=== PATIENT | female | born 1995 | race Caucasian/White ===

== ENCOUNTER 2024-05-03 23:28 | Inpatient (IN) | payer MEDICAID ==
--- NOTE | 2024-05-04 | ED ---
Psych HPI - General Chief Complaint: Psychiatric Symptoms Stated Complaint: SI Time Seen by Provider: 05/03/24 23:50 Source: patient, RN notes reviewed, old records reviewed Mode of arrival: ambulatory - History of Present Illness Initial Comments: This is a 29-year-old female with longstanding depression issues and suicidal thoughts. Patient states he is thoughts of ramped up over the past few days to weeks. No recent life stressors or change, no change in medications, patient is drinking occasionally. But symptoms are uncontrolled at this time, patient is tearful during questioning and history of present illness MD Complaint: suicidal ideation, feels depressed -: week(s) Associated Psychiatric Symptoms: depression, suicidal ideation History of same: Yes Quality: constant, getting worse Improves With: none Worsens With: none Context: recent alcohol abuse Associated Symptoms: denies other symptoms Treatments Prior to Arrival: placed on mental health hold If Self Harm: admits thoughts of self harm - Related Data Home Medications Medication Instructions Recorded Confirmed [place]/APAP/Caf/Cod [id number] 1 each PO Q6H 06/26/13 06/26/13 [Fioricet W/Codeine] Hydrocodone/Acetaminophen [Vicodin 1 tab PRN 06/26/13 06/26/13 Hp 10-300 mg Tablet] Allergies Allergy/AdvReac Type Severity Reaction Status Date / Time No Known Allergies Allergy Verified 05/03/24 23:38 Review of Systems ROS Statement: Those systems with pertinent positive or pertinent negative responses have been documented in the HPI. ROS Other: All systems not noted in ROS Statement are negative. Past Medical History Past Medical History: No Reported History History of Any Multi-Drug Resistant Organisms: None Reported Past Surgical History: No Surgical Hx Reported Past Psychological History: Anxiety, Depression Smoking Status: Vaper Past Alcohol Use History: Occasional Past Drug Use History: Marijuana General Exam Limitations: no limitations General appearance: alert, in no apparent distress Head exam: Present: atraumatic, normocephalic, normal inspection Eye exam: Present: normal appearance, PERRL, EOMI. Absent: scleral icterus, conjunctival injection, periorbital swelling ENT exam: Present: normal exam, mucous membranes moist Neck exam: Present: normal inspection. Absent: tenderness, meningismus, lymphadenopathy Respiratory exam: Present: normal lung sounds bilaterally. Absent: respiratory distress, wheezes, rales, rhonchi, stridor Cardiovascular Exam: Present: regular rate, normal rhythm, normal heart sounds. Absent: systolic murmur, diastolic murmur, rubs, gallop, clicks GI/Abdominal exam: Present: soft, normal bowel sounds. Absent: distended, tenderness, guarding, rebound, rigid Extremities exam: Present: normal inspection, full ROM, normal capillary refill. Absent: tenderness, pedal edema, joint swelling, calf tenderness Back exam: Present: normal inspection Neurological exam: Present: alert, oriented X3, CN II-XII intact Psychiatric exam: Present: normal affect, normal mood Skin exam: Present: warm, dry, intact, normal color. Absent: rash Course Vital Signs 05/03/24 23:39 Temperature 98.0 F Pulse Rate 108 H Respiratory 20 Rate Blood Pressure 131/88 O2 Sat by Pulse 98 Oximetry - Reevaluation(s) Reevaluation #1: 05/04/24 00:16 Medical records reviewed Reevaluation #2: 05/04/24 00:16 Medical cleared for psychiatric evaluation Reevaluation #3: Was pt. sent in by a medical professional or institution (, PA, FOOD SERVICE CASHIER, urgent care, hospital, or senior living...) When possible be specific @ -no Did you speak to anyone other than the patient for history (EMS, parent, family, police, friend...)? What history was obtained from this source @ -no Did you review nursing and triage notes (agree or disagree)? Why? @ -agree Are old charts reviewed (outside hosp., previous admission, EMS record, old EKG, old radiological studies, urgent care reports/EKG's, senior living records)? Report findings @ -yes Differential Diagnosis (chest pain, altered mental status, abdominal pain women, abdominal pain men, vaginal bleeding, weakness, fever, dyspnea, syncope, headache, dizziness, GI bleed, back pain, seizure, CVA, palpatations, mental health, musculoskeletal)? @ -prior EKG interpreted by me (3pts min.). @ -yes X-rays interpreted by me (1pt min.). @ -yes negative for acute disease CT interpreted by me (1pt min.). @ -no U/S interpreted by me (1pt. min.). @ -no What testing was considered but not performed or refused? (CT, X-rays, U/S, labs)? Why? @ -none What meds were considered but not given or refused? Why? @ -none Did you discuss the management of the patient with other professionals (professionals i.e. , PA, FOOD SERVICE CASHIER, lab, RT, psych nurse, social work lecturer, squaring machine operator, teacher, executive vice president and chief financial officer, nurse case manager)? Give summary @ -no Was smoking cessation discussed for >3mins.? @ -no Was critical care preformed (if so, how long)? @ -no Were there social determinants of health that impacted care today? How? (Homelessness, low income, unemployed, alcoholism, drug addiction, transportation, low edu. Level, literacy, decrease access to med. care, usp, rehab)? @ -none Was there de-escalation of care discussed even if they declined (Discuss DNR or withdrawal of care, Hospice)? DNR status @ -no What co-morbidities impacted this encounter? (DM, HTN, Smoking, COPD, CAD, Cancer, CVA, ARF, Chemo, Hep., AIDS, mental health diagnosis, sleep apnea, morbid obesity)? @ -none Was patient admitted / discharged? Hospital course, mention meds given and route, prescriptions, significant lab abnormalities, going to OR and other pertinent info. @ - Undiagnosed new problem with uncertain prognosis? @ -no Drug Therapy requiring intensive monitoring for toxicity (Heparin, Nitro, Insulin, Cardizem)? @ -no Were any procedures done? @ -no Diagnosis/symptom? @ - Acute, or Chronic, or Acute on Chronic? @ -Acute Uncomplicated (without systemic symptoms) or Complicated (systemic symptoms)? @ -Complicated Side effects of treatment? @ -no Exacerbation, Progression, or Severe Exacerbation? @ -exacerbation Poses a threat to life or bodily function? How? (Chest pain, [place], [place], pneumonia, PE, COPD, DKA, ARF, appy, cholecystitis, CVA, Diverticulitis, Homicidal, Suicidal, threat to staff... and all critical care pts) @ -yes Reevaluation #4: Differential Mental Health Depression, anxiety, bipolar, psychosis, schizophrenia, borderline personality, situational depression, adjustment disorder, behavioral disorder, brain tumor, malingering, substance abuse, encephalopathy, medication reaction, dementia, hypothyroidism, degenerative neurologic disorder, lupus.... This is not meant to be all-inclusive list Disposition Clinical Impression: Depression, Suicidal ideation Disposition: TRANSFER TO PSYCH HOSP/UNIT Condition: Fair Is patient prescribed a controlled substance at d/c from ED?: No Referrals: Lila Hernandes MD [Primary Care Provider] - 1-2 days
[2024-05-04] MEDS: LORazepam 1 MG TAB PO STA (01:31)
[2024-05-04] MEDS ORDERED: HALOPERIDOL LACTATE 5 MG/ML 1 ML VIAL IM PRN (02:12)
[2024-05-04] MEDS ORDERED: ACETAMINOPHEN TAB 325 MG TAB PO PRN (02:12)
[2024-05-04] MEDS ORDERED: MAG HYDROX/AL HYDROX/SIMETH 355 ML BOTTLE PO PRN (02:12)
[2024-05-04] MEDS ORDERED: LORazepam 1 MG TAB PO PRN (02:12)
[2024-05-04] MEDS ORDERED: IBUPROFEN 600 MG TAB PO PRN (02:12)
[2024-05-04] MEDS ORDERED: MAGNESIUM HYDROXIDE 2,400 MG/30 ML CUP PO PRN (02:12)
[2024-05-04] MEDS ORDERED: haloperidoL 5 MG TAB PO PRN (02:12)
[2024-05-04] MEDS ORDERED: LORazepam 2 MG/ML INJ IM PRN (02:12)
[2024-05-04 03:42] LABS: Appearance,Urine Clear (Clear); Bilirubin,Urine Negative (Negative); Blood,Urine Negative (Negative); Color,Urine Colorless; Glucose,Urine (UA) Negative (Negative); Ketones,Urine Negative (Negative); Leukocyte Esterase,Urine Negative (Negative); Nitrite,Urine Negative (Negative); Protein,Urine Negative (Negative); Urobilinogen,Urine <2.0 mg/dL (<2.0)
[2024-05-04 03:53] LABS: Amphetamine Screen,Urine Not Detected (NotDetected); Barbiturate Screen,Urine Not Detected (NotDetected); Benzodiazepines Screen,Urine Not Detected (NotDetected); Cocaine Screen,Urine Not Detected (NotDetected); Methadone Screen, Urine Not Detected (NotDetected); Opiate Screen,Urine Not Detected (NotDetected); Oxycodone Screen, Urine Not Detected (NotDetected); Phencyclidine Screen,Urine Not Detected (NotDetected); Tricyclic Antidepressant,Urine Not Detected (NotDetected); Urn Cannabinoid Scrn Not Detected (NotDetected)
[2024-05-04] MEDS: NICOTINE 21MG/24HR PATCH TRANSDERM SCH (08:33)
[2024-05-04] MEDS: SERTRALINE 100 MG TAB PO SCH (08:34)
[2024-05-04 09:56] LABS: Basophils # (A) 0.1 k/uL (0-0.2); Basophils % (A) 1 %; Eosinophils # (A) 0.2 k/uL (0-0.7); Eosinophils % (A) 2 %; HCT 41.1 % (34.0-46.0); HGB 12.9 gm/dL (11.4-16.0); Lymphocytes # (A) 2.4 k/uL (1.0-4.8); Lymphocytes % (A) 35 %; MCH 29.1 pg (25.0-35.0); MCHC 31.4 g/dL (31.0-37.0); MCV 92.7 fL (80.0-100.0); Mean Platelet Volume 8.7; Monocytes # (A) 0.4 k/uL (0-1.0); Monocytes % (A) 6 %; Neutrophils # (A) 3.7 k/uL (1.3-7.7); Neutrophils % (A) 54 %; Platelet Count 229 k/uL (150-450); RBC 4.44 m/uL (3.80-5.40); RDW 12.3 % (11.5-15.5); WBC 6.8 k/uL (3.8-10.6)
[2024-05-04] MEDS ORDERED: ALBUTEROL NEBULIZED 2.5 MG/3 ML INHALATION PRN (11:46)
--- NOTE | 2024-05-04 12:08 | P.HP ---
Psychiatric H&P - . H&P Date: 05/04/24 History & Physical: Allergies Allergy/AdvReac Type Severity Reaction Status Date / Time No Known Allergies Allergy Verified 05/04/24 10:23 Vital Signs Temp 97.6 F 05/04/24 10:08 Pulse 75 05/04/24 10:08 Resp 16 05/04/24 10:08 BP 98/67 05/04/24 10:08 Pulse Ox 65 L 05/04/24 10:08 FiO2 Intake & Output 05/03/24 05/04/24 05/04/24 18:59 06:59 18:59 Weight 59.874 kg Laboratory Last Values WBC 6.8 k/uL (3.8-10.6) 05/04/24 08:50 RBC 4.44 m/uL (3.80-5.40) 05/04/24 08:50 Hgb 12.9 gm/dL (11.4-16.0) 05/04/24 08:50 Hct 41.1 % (34.0-46.0) 05/04/24 08:50 MCV 92.7 fL (80.0-100.0) 05/04/24 08:50 MCH 29.1 pg (25.0-35.0) 05/04/24 08:50 MCHC 31.4 g/dL (31.0-37.0) 05/04/24 08:50 RDW 12.3 % (11.5-15.5) 05/04/24 08:50 Plt Count 229 k/uL (150-450) 05/04/24 08:50 MPV 8.7 05/04/24 08:50 Neutrophils % 54 % 05/04/24 08:50 Lymphocytes % 35 % 05/04/24 08:50 Monocytes % 6 % 05/04/24 08:50 Eosinophils % 2 % 05/04/24 08:50 Basophils % 1 % 05/04/24 08:50 Neutrophils # 3.7 k/uL (1.3-7.7) 05/04/24 08:50 Lymphocytes # 2.4 k/uL (1.0-4.8) 05/04/24 08:50 Monocytes # 0.4 k/uL (0-1.0) 05/04/24 08:50 Eosinophils # 0.2 k/uL (0-0.7) 05/04/24 08:50 Basophils # 0.1 k/uL (0-0.2) 05/04/24 08:50 Urine Color Colorless 05/04/24 02:47 Urine Appearance Clear (Clear) 05/04/24 02:47 Urine pH 5.0 (5.0-8.0) 05/04/24 02:47 Ur Specific [place] 1.010 (1.001-1.035) 05/04/24 02:47 Urine Protein Negative (Negative) 05/04/24 02:47 Urine Glucose (UA) Negative (Negative) 05/04/24 02:47 Urine Ketones Negative (Negative) 05/04/24 02:47 Urine Blood Negative (Negative) 05/04/24 02:47 Urine Nitrite Negative (Negative) 05/04/24 02:47 Urine Bilirubin Negative (Negative) 05/04/24 02:47 Urine Urobilinogen <2.0 mg/dL (<2.0) 05/04/24 02:47 Ur Leukocyte Esterase Negative (Negative) 05/04/24 02:47 Urine HCG, Qual Not Detected (Not Detectd) 05/04/24 02:47 Urine Opiates Screen Not Detected (NotDetected) 05/04/24 02:47 Ur Oxycodone Screen Not Detected (NotDetected) 05/04/24 02:47 Urine Methadone Screen Not Detected (NotDetected) 05/04/24 02:47 Ur Barbiturates Screen Not Detected (NotDetected) 05/04/24 02:47 U Tricyclic Antidepress Not Detected (NotDetected) 05/04/24 02:47 Ur Phencyclidine Scrn Not Detected (NotDetected) 05/04/24 02:47 Ur Amphetamines Screen Not Detected (NotDetected) 05/04/24 02:47 U Methamphetamines Scrn Not Detected (NotDetected) 05/04/24 02:47 U Benzodiazepines Scrn Not Detected (NotDetected) 05/04/24 02:47 Urine Cocaine Screen Not Detected (NotDetected) 05/04/24 02:47 U Marijuana (THC) Screen Not Detected (NotDetected) 05/04/24 02:47 SARS-CoV-2 (PCR) Not Detected (Not Detectd) 05/04/24 01:07 05/04/24 11:38 IDENTIFYING DATA: Patient is a 29-year-old female, currently single has no kids, lives with a friend in a house, 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 Patient was evaluated by EPS, admitted voluntarily to the mental health unit. Patient's urine drug screen was negative. Patient was seen today agreeable to speak to senior technical writer in the office. She had fairly poor eye contact, fairly concrete and appeared to be depressed. States that her depression has been "too much to handle". States that "I could not do it on my own" and claims that she needed to come into the hospital. She states that her depression "comes in waves" and states that she has been dealing with this issue chronically. States that she also has severe anxiety. Denies any recent life stressors or triggers in her life. Claims that she was having suicidal thoughts to cut her wrists. States that her sleep and appetite have been poor. Denying any paranoia at this time.. Patient denies any suicidal or homicidal ideations intent or plan. At this time patient denies any auditory or visual hallucinations. Patient denies any flight of ideas racing thoughts and increased in goal directed behavior. She did claim that she has a history of episodes where she spends a lot of money, has a lot of energy does need to sleep, possible manic episodes that she reflects back on in the past few years. Patient admits to using vape nicotine products. Denies any other drug recreational drug use. PAST PSYCHIATRIC HISTORY: Patient has a history of depression, anxiety. Patient is currently on Zoloft 100 mg daily. Patient denies any previous psychiatric hospitalizations. Patient denies any psychiatric outpatient follow-up. She claims that she gets prescribed the Zoloft by her primary care doctor. Claims that she did have an episode when she was 15 years old when she attempted to cut her wrists. Past Medical History: No Reported History History of Any Multi-Drug Resistant Organisms: None Reported Past Surgical History: No Surgical Hx Reported Past Psychological History: Anxiety, Depression Smoking Status: Vaper Past Alcohol Use History: Occasional Past Drug Use History: Marijuana ALLERGIES: as per EMR CHEMICAL DEPENDENCY HISTORY: as per HPI FAMILY PSYCHIATRIC/SUBSTANCE USE HISTORY: Denies SOCIAL HISTORY: Patient was born and raised in [facility]. Claims that she completed high school and did trade school. States that she currently works doing patient registration in the hospital. States that she is single she has no kids, she lives with a friend in a house. She denies any legal history. MENTAL STATUS EXAM: General Appearance: Patient appears to be thin, wearing hospital gown, stated age is alert, directable, and attempts to cooperate. Patient appears to have poor hygiene and grooming. Poor eye contact Behavior: Patient is seated without any agitated behavior. Attempts to cooperate Speech: Patient's speech is fluent and nonpressured. Fairly concrete monotone Mood/Affect: Patient reports their mood is depressed and anxious, affect is congruent and constricted. Suicidality/Homicidality: Patient denies having any homicidal ideation intent or plan. Denies any current suicidal ideations intent or plan Perceptions: Patient denies any visual hallucinations and denies any auditory hallucinations Though content/process: There is no evidence of any delusional thought content and thought process is linear and goal-directed. Focused on her depression and suicidal ideations in the past. Memory and concentration: AOX3, grossly intact for the purposes of this session. Can spell "WORLD" backwards Judgment and insight: fair STRENGTHS/WEAKNESSES: strength is that patient is resilient. Weakness is that patient has chronic symptoms and is impulsive INTELLECT: Average IMPRESSIONS: Suicidal ideations Depressive disorder unspecified, rule out bipolar depression versus major depressive disorder Generalized anxiety disorder Nicotine dependence PLAN: -Patient is admitted under voluntary status to MHU for stabilization of psychiatric symptoms and safety. Patient has signed adult voluntary form and has signed medication consent and is placed in patient's chart. -Medications : Continue with Zoloft 100 mg daily for mood/anxiety, added Abilify 2.5 mg daily for mood stabilization, trazodone 25 mg nightly for mood/insomnia -Ativan and Haldol PRN for agitation/aggression -Patient was informed of the risks, benefits and side effects of the medications and patient verbally consented to taking the medications. Patient signed med consent form and was placed in chart. Patient was offered medication information and declined it -Internal Medicine consult to perform medical evaluation and physical. -NRT -nicotine patch -SW on board for discharge planning. Encourage patient to participate in groups to work on coping skills. 05/04/24 12:02
[2024-05-04 12:25] LABS: ALT 17 U/L (4-34); AST 21 U/L (14-36); African American GFR (CKD) >90 (>60 ml/min/1.73 sqM); Albumin 4.4 g/dL (3.5-5.0); Alkaline Phosphatase 49 U/L (38-126); Anion Gap 11 mmol/L; Bilirubin, Delta 0.3 mg/dL (0.0-0.2); Bilirubin,Unconjugated 0.5 mg/dL (0.0-1.1); Blood Urea Nitrogen 20 mg/dL (7-17); Calcium 8.9 mg/dL (8.4-10.2); Carbon Dioxide 24 mmol/L (22-30); Chloride 104 mmol/L (98-107); Glucose 94 mg/dL (74-99); Non-African American GFR(CKD) >90 (>60 ml/min/1.73 sqM); Sodium 139 mmol/L (137-145); Total Bilirubin 0.8 mg/dL (0.2-1.3); Total Protein 7.1 g/dL (6.3-8.2)
[2024-05-04] MEDS: FLUTICASONE NASAL 50MCG/SPRAY 16GM BTL EA NOSTRIL SCH (12:31)
[2024-05-04] MEDS: NORETHINDRONE AC ETH ESTRADIOL PO SCH (12:33)
[2024-05-04] MEDS: MELOXICAM 7.5 MG TAB PO SCH (12:34)
[2024-05-04] MEDS: ARIPiprazole 5 MG TAB PO SCH (12:35)
[2024-05-04 15:33] LABS: Chol/HDL Ratio 2.87 Ratio; LDL Cholesterol,Calculated 115.8 mg/dL (0.0-131.0)
[2024-05-04] MEDS: traZODone HCL 50 MG TAB PO SCH (20:34)
--- NOTE | 2024-05-05 04:37 | P.CONS ---
History of Present Illness - Reason for Consult Consult date: 05/05/24 - History of Present Illness The patient is a 29-year-old female with a PMH of chronic migraine, mild intermittent asthma, and depression who presents to the emergency with complaints of depression and suicidal ideation. Patient was admitted to mental health unit where she was seen and evaluated. The patient reports that there is any specific life factors that are triggering her current episode but that she simply does not feel well. She does report chronic migraines which are well controlled with her prophylactic injections. She also reports chronic bilateral hand tremors which she has been following with neurology. She denies illicit substance, alcohol, or tobacco use. Denied any physical complaints at time of interview. Denied experiencing chest discomfort, shortness breath, fever, chills, cough, nausea, vomiting, abdominal pain, diarrhea. Review of systems: Pertinent positives and negatives as discussed in HPI, a complete review of systems was performed and all other systems are negative. Physical examination: General: non toxic, no distress, appears at stated age, normal weight Derm: no unusual rashes/lesions, no unusual ecchymoses, warm, dry Head: atraumatic, normocephalic, symmetric Eyes: EOMI, no lid lag, anicteric sclera ENT: Nose and ears atraumatic, no thrush, no pharyngeal erythema Neck: trachea midline, supple Mouth: no lip lesion, mucus membranes moist Cardiovascular: S1S2 reg, no murmur, no edema Lungs: CTA bilateral, no rhonchi, no rales , no accessory muscle use Abdominal: soft, nontender to palpation, no guarding Ext: no gross muscle atrophy, no contractures, Neuro: No gross focal neuro deficits noted Psych: Alert, oriented, appropriate affect Assessment: Chronic migraines Mild intermittent asthma Depression and suicidal ideation Imaging: None performed Data Review: Laboratory evaluation reviewed with WBC count 6.8, hemoglobin 12.9, platelet count 229, sodium 139, potassium 4.0, BUN 20, creatinine 0.74, UA unremarkable, urine toxicology negative Plan: Continue with albuterol inhaler as needed and home prophylactic and treatment doses for migraines Defer management of depression and suicidal ideation to the primary psychiatry service Thank you for allowing us to participate in the care of this patient. We will follow peripherally. Do not hesitate to contact us with questions. Someone can be reached from the [facility] hospitalist group at all hours of the day at [phone]. Past Medical History Past Medical History: No Reported History History of Any Multi-Drug Resistant Organisms: None Reported Past Surgical History: No Surgical Hx Reported Past Psychological History: Anxiety, Depression Smoking Status: Vaper Past Alcohol Use History: Occasional Past Drug Use History: None Reported Medications and Allergies Home Medications Medication Instructions Recorded Confirmed Type Albuterol Inhaler [Ventolin Hfa 2 puff INHALATION RT-Q4H PRN 05/04/24 05/04/24 History Inhaler] Cetirizine HCl [Zyrtec] 10 mg PO DAILY 05/04/24 05/04/24 History Fluticasone Nasal [place] [Flonase 1 spray EA NOSTRIL DAILY 05/04/24 05/04/24 History Nasal [place]] Galcanezumab-Gnlm [Emgality Pen] 120 mg SQ Q30D 05/04/24 05/04/24 History Meloxicam [Mobic] 7.5 mg PO DAILY 05/04/24 05/04/24 History SUMAtriptan succinate [Imitrex] 50 mg PO BID PRN 05/04/24 05/04/24 History Sertraline [Zoloft] 100 mg PO DAILY 05/04/24 05/04/24 History norethindrone ac-eth estradioL 1 tab PO DAILY 05/04/24 05/04/24 History [Loestrin 21 1-20 Tablet] Allergies Allergy/AdvReac Type Severity Reaction Status Date / Time No Known Allergies Allergy Verified 05/04/24 10:23 Physical Exam Vitals: Vital Signs Temp Pulse Resp BP Pulse Ox 05/04/24 21:55 97.9 F 83 16 105/72 98 05/04/24 10:08 97.6 F 75 16 98/67 65 L 05/04/24 04:59 98.2 F 97 18 117/78 97 Results CBC & Chem 7: 05/04/24 08:50 05/04/24 08:50 Labs: Abnormal Lab Results - Last 24 Hours (Table) 05/04/24 Range/Units 08:50 BUN 20 H (7-17) mg/dL Delta Bilirubin 0.3 H (0.0-0.2) mg/dL Cholesterol 212.00 H (0.00-200.00) mg/dL HDL Cholesterol 73.80 H (40.00-60.00) mg/dL
[2024-05-05] MEDS ORDERED: MELATONIN 3 MG TABLET PO PRN (11:32)
--- NOTE | 2024-05-05 11:32 | P.PN ---
Progress Note - Text Progress Note Date: 05/05/24 Interval history: Patient was seen today for psychiatric follow-up. Patient was laying in her b ed, agreeable to speak to science writer. She claims that she is feeling a bit tired this morning, claims that she was awoken several times last night for different reasons. States that she feels after taking the Abilify she is a bit tired. Was agreeable to try the Abilify dose at nighttime. Does state that she is improving mildly with regards to her mood and also anxiety. Denying any manic symptoms at this time. Claims that her suicidal thoughts are improving since yesterday, denies any homicidal ideations denies any auditory or visual hallucinations. Has been mainly keeping herself in her room. Has been eating fairly. Not reporting any side effects at this time. MENTAL STATUS EXAM: General Appearance: Patient appears to be thin, wearing hospital gown, stated age is alert, directable, and attempts to cooperate. Patient appears to have mildly improving hygiene and grooming. Improving eye contact Behavior: Patient is seated without any agitated behavior. Attempts to cooperate Speech: Patient's speech is fluent and nonpressured. Fairly concrete monotone my improving mildly Mood/Affect: Patient reports their mood is depressed and anxious, improving mildly, affect is congruent and constricted. Suicidality/Homicidality: Patient denies having any homicidal ideation intent or plan. Denies any current suicidal ideations intent or plan Perceptions: Patient denies any visual hallucinations and denies any auditory hallucinations Though content/process: There is no evidence of any delusional thought content and thought process is linear and goal-directed. Focused on her depression and suicidal ideations in the past. Memory and concentration: AOX3, grossly intact for the purposes of this session Judgment and insight: fair IMPRESSIONS: Suicidal ideations Depressive disorder unspecified, rule out bipolar depression versus major depressive disorder Generalized anxiety disorder Nicotine dependence PLAN: -Patient is admitted under voluntary status to MHU for stabilization of psychiatric symptoms and safety. Patient has signed adult voluntary form and has signed medication consent and is placed in patient's chart. -Medications : Zoloft 100 mg daily for mood/anxiety, change Abilify 2.5 mg qhs for mood stabilization, trazodone 25 mg nightly for mood/insomnia. added melatonin prn for sleep. -Ativan and Haldol PRN for agitation/aggression -NRT -nicotine patch -SW on board for discharge planning. Encourage patient to participate in groups to work on coping skills. likely discharge saturday vs saturday if patient is improving psychiatrically.
[2024-05-05] MEDS: ARIPiprazole 5 MG TAB PO SCH (20:45)
--- NOTE | 2024-05-06 12:04 | P.PN ---
Progress Note - Text Progress Note Date: 05/06/24 Interval history: Patient was seen today for psychiatric follow-up. Patient was doing a puzzle, interacting with others. Claims that she likes the switch of the Abilify to nighttime, claims that she was able to sleep about 6 hours last night. States that she has been trying to interact more with others on the unit, believes that her medications have been helping. Claims that she is not feeling tired during the day today. States that her mood and anxiety are mildly improving, no irritability. We spoke a bit about discharge planning likely on Saturday. Her appetite is fair has been showering. denies any homicidal ideations denies any suicidal ideations, denies any auditory or visual hallucinations. Not reporting any side effects at this time. MENTAL STATUS EXAM: General Appearance: Patient appears to be thin, wearing hospital gown, stated age is alert, directable, and attempts to cooperate. Patient appears to have mildly improving hygiene and grooming. Improving eye contact Behavior: Patient is seated without any agitated behavior. Attempts to cooperate Speech: Patient's speech is fluent and nonpressured. Fairly concrete monotone my improving mildly Mood/Affect: Patient reports their mood is depressed and anxious, improving mildly, affect is congruent and constricted. Improving mildly Suicidality/Homicidality: Patient denies having any homicidal ideation intent or plan. Denies any current suicidal ideations intent or plan Perceptions: Patient denies any visual hallucinations and denies any auditory hallucinations Though content/process: There is no evidence of any delusional thought content and thought process is linear and goal-directed. Less focused on depression and her symptoms Memory and concentration: AOX3, grossly intact for the purposes of this session Judgment and insight: fair IMPRESSIONS: Suicidal ideations Depressive disorder unspecified, rule out bipolar depression versus major depressive disorder Generalized anxiety disorder Nicotine dependence PLAN: -Patient is admitted under voluntary status to MHU for stabilization of psychiatric symptoms and safety. Patient has signed adult voluntary form and has signed medication consent and is placed in patient's chart. -Medications : Zoloft 100 mg daily for mood/anxiety, increase Abilify 5 mg qhs for mood stabilization, trazodone 25 mg nightly for mood/insomnia. melatonin prn for sleep. -Ativan and Haldol PRN for agitation/aggression -NRT -nicotine patch -SW on board for discharge planning. Encourage patient to participate in groups to work on coping skills. likely discharge saturday if patient is improving psychiatrically.
[2024-05-06] MEDS: ARIPiprazole 5 MG TAB PO SCH (20:36)
[2024-05-07] MEDS: SUMAtriptan succinate 50 MG TAB PO PRN (08:59)
--- NOTE | 2024-05-07 12:55 | P.PN ---
Progress Note - Text Progress Note Date: 05/07/24 Interval history: Patient was seen today for psychiatric follow-up. Patient claims that she is doing a bit better today, claims that she slept very well last night with the increased dose and Abilify. Claims that she wants to remain on the same dose of medications. Claims that her mood is a lot more stable now, denies any depression claims that her anxiety is improving as well. She appears to be a bit more future oriented today we spoke about potential discharge tomorrow which she is okay with. Claims that she is try to go to groups interacting with others. Her appetite is fair has been showering. denies any homicidal ideations denies any suicidal ideations, denies any auditory or visual hallucinations. Not reporting any side effects at this time. MENTAL STATUS EXAM: General Appearance: Patient appears to be thin, wearing hospital gown, stated age is alert, directable, and attempts to cooperate. Patient appears to have mildly improving hygiene and grooming. Improving eye contact Behavior: Patient is seated without any agitated behavior. Cooperative Speech: Patient's speech is fluent and nonpressured. improving mildly Mood/Affect: Patient reports their mood is improving mildly, affect is congruent and Improving mildly Suicidality/Homicidality: Patient denies having any homicidal ideation intent or plan. Denies any current suicidal ideations intent or plan Perceptions: Patient denies any visual hallucinations and denies any auditory hallucinations Though content/process: There is no evidence of any delusional thought content and thought process is linear and goal-directed. Or future oriented today Memory and concentration: AOX3, grossly intact for the purposes of this session Judgment and insight: fair IMPRESSIONS: Suicidal ideations Depressive disorder unspecified, rule out bipolar depression versus major depressive disorder Generalized anxiety disorder Nicotine dependence PLAN: -Patient is admitted under voluntary status to MHU for stabilization of psychiatric symptoms and safety. Patient has signed adult voluntary form and has signed medication consent and is placed in patient's chart. -Medications : Zoloft 100 mg daily for mood/anxiety, Abilify 5 mg qhs for mood stabilization, trazodone 25 mg nightly for mood/insomnia. melatonin prn for sleep. -Ativan and Haldol PRN for agitation/aggression -NRT -nicotine patch -SW on board for discharge planning. Encourage patient to participate in groups to work on coping skills. likely discharge saturday if patient is improving psychiatrically.
[2024-05-07 21:43] VITALS: RESP 12
[2024-05-08 09:36] VITALS: BP 113/82; PULSE 89; TEMP 97.6
--- NOTE | 2024-05-08 11:19 | P.DS ---
Providers Date of admission: 05/04/24 02:09 Expected date of discharge: 05/08/24 Attending physician: Lester Barone MD Consults: 05/04/24 02:12 Consult Physician Routine Consulting Provider: Ammon Hinds Consult Reason/Comments: H & P w/medical management Do you want consulting provider notified?: Yes Primary care physician: Lila Hernandes - Discharge Diagnosis(es) (1) Suicidal ideations Current Visit: Yes Status: Acute Priority: High (2) Bipolar disorder current episode depressed Current Visit: Yes Status: Acute Priority: High (3) Generalized anxiety disorder Current Visit: Yes Status: Acute Priority: High (4) Nicotine dependence Current Visit: Yes Status: Acute Priority: Low Hospital Course: Admission HPI: Admission note was completed by gag writer "Patient is a 29-year-old female, currently single has no kids, lives with a friend in a house, 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 patient presented to the hospital late yesterday to the ER complaining of depression and suicidal ideations for the past few weeks, was tearful. Patient was evaluated by EPS, admitted voluntarily to the mental health unit. Patient's urine drug screen was negative. Patient was seen today agreeable to speak to gag writer in the office. She had fairly poor eye contact, fairly concrete and appeared to be depressed. States that her depression has been "too much to handle". States that "I could not do it on my own" and claims that she needed to come into the hospital. She states that her depression "comes in waves" and states that she has been dealing with this issue chronically. States that she also has severe anxiety. Denies any recent life stressors or triggers in her life. Claims that she was having suicidal thoughts to cut her wrists. States that her sleep and appetite have been poor. Denying any paranoia at this time.. Patient denies any suicidal or homicidal ideations intent or plan. At this time patient denies any auditory or visual hallucinations. Patient denies any flight of ideas racing thoughts and increased in goal directed behavior. She did claim that she has a history of episodes where she spends a lot of money, has a lot of energy does need to sleep, possible manic episodes that she reflects back on in the past few years. Patient admits to using vape nicotine products. Denies any other drug recreational drug use." Hospital course: Upon admission to the unit patient was directable and agreeable to commence treatment and signed adult voluntary form. Patient was initially depressed, isolative however with time and treatment patient got along well with other patients on the unit and followed unit protocol. Patient was compliant with the medications and denied any side effects throughout hospital course. Patient was started on Zoloft 100 mg daily for mood/anxiety, Abilify 5 mg nightly for mood stabilization, trazodone 25 mg nightly for mood/insomnia.. Patient spoke of her stressors and engaged in therapy both group/activity therapy. Patient was also seen by medical team for history and physical exam. Throughout the course of the hospitalization patient gradually improved with regards to mood, anxiety, sleep and became more future oriented with improved insight and judgment. On the day of discharge patient denied any suicidal or homicidal ideations intent or plan denied any auditory or visual hallucinations. Patient endorsed wanting to live for their health and family. The patient denied any access to guns or weapons. Patient denied any paranoia and did not endorse any delusions. Patient does not have a significant history of substance abuse and was counseled on abstaining from all substances including alcohol and marijuana. Patient was also counseled on the medications and need for regular compliance and was encouraged to follow-up with their outpatient appointment for mental health and also for primary care. Prior to discharge a family meeting will be arranged by clinical social worker to answer any questions and ensure safety upon discharge incuding making sure that guns/weapons are either removed from the home or locked away. Mental status exam: General Appearance: Patient appears to be stated age is alert, pleasant, and cooperative. Patient is in no acute distress and has improved hygiene and grooming Behavior: Patient is calmly seated without any agitated behavior. Speech: Patient's speech is fluent and nonpressured. Mood/Affect: Patient reports their mood is "good", affect is congruent and euthymic. Suicidality/Homicidality: Patient denies having any suicidal or homicidal ideation intent or plan. Perceptions: Patient denies any auditory or visual hallucinations. Though content/process: There is no evidence of any delusional thought content and thought process is linear and goal-directed. More future oriented Memory and concentration: AOX3, grossly intact for the purposes of this session. Can spell "WORLD" backwards correctly. Judgment and insight: improved with guarded prognosis Impression: Suicidal ideations Bipolar disorder current episode depressed Generalized anxiety disorder and Nicotine dependence Plan: -Continue with discharge today as patient has improved and stabilized psychiatrically and is not currently an imminent threat to themself and/or others. -Continue medications: Zoloft 100 mg daily for mood/anxiety, Abilify 5 mg nightly for mood stabilization, trazodone 25 mg nightly for mood/insomnia. -Patient was counseled on the need for medication compliance and appropriate follow-up at mental health and also primary care for medical issues. Patient verbalized understanding and agreed. -Social work to help coordinate patients discharge today. also to ensure safe home environment that guns/weapons are either removed from the home or locked away. Social work also to arrange for patients follow up appointments for psychiatric care along with follow up with primary care provider. -Patient counseled on abstaining from recreational drugs and marijuana and alcohol. Was informed/educated on the adverse effects on their physical and mental health. Patient verbally agreed and understood. -Patient was instructed to return to the hospital or seek immediate medical care if their psychiatric or medical symptoms do worsen or reoccur. Allergies Allergy/AdvReac Type Severity Reaction Status Date / Time No Known Allergies Allergy Verified 05/04/24 10:23 Laboratory Results WBC 6.8 k/uL (3.8-10.6) 05/04/24 08:50 RBC 4.44 m/uL (3.80-5.40) 05/04/24 08:50 Hgb 12.9 gm/dL (11.4-16.0) 05/04/24 08:50 Hct 41.1 % (34.0-46.0) 05/04/24 08:50 MCV 92.7 fL (80.0-100.0) 05/04/24 08:50 MCH 29.1 pg (25.0-35.0) 05/04/24 08:50 MCHC 31.4 g/dL (31.0-37.0) 05/04/24 08:50 RDW 12.3 % (11.5-15.5) 05/04/24 08:50 Plt Count 229 k/uL (150-450) 05/04/24 08:50 MPV 8.7 05/04/24 08:50 Neutrophils % 54 % 05/04/24 08:50 Lymphocytes % 35 % 05/04/24 08:50 Monocytes % 6 % 05/04/24 08:50 Eosinophils % 2 % 05/04/24 08:50 Basophils % 1 % 05/04/24 08:50 Neutrophils # 3.7 k/uL (1.3-7.7) 05/04/24 08:50 Lymphocytes # 2.4 k/uL (1.0-4.8) 05/04/24 08:50 Monocytes # 0.4 k/uL (0-1.0) 05/04/24 08:50 Eosinophils # 0.2 k/uL (0-0.7) 05/04/24 08:50 Basophils # 0.1 k/uL (0-0.2) 05/04/24 08:50 Sodium 139 mmol/L (137-145) 05/04/24 08:50 Potassium 4.0 mmol/L (3.5-5.1) 05/04/24 08:50 Chloride 104 mmol/L (98-107) 05/04/24 08:50 Carbon Dioxide 24 mmol/L (22-30) 05/04/24 08:50 Anion Gap 11 mmol/L 05/04/24 08:50 BUN 20 mg/dL (7-17) H 05/04/24 08:50 Creatinine 0.74 mg/dL (0.52-1.04) 05/04/24 08:50 Est GFR (CKD-EPI)AfAm >90 (>60 ml/min/1.73 sqM) 05/04/24 08:50 Est GFR (CKD-EPI)NonAf >90 (>60 ml/min/1.73 sqM) 05/04/24 08:50 Glucose 94 mg/dL (74-99) 05/04/24 08:[address] Glu mg/dL 97 mg/dL 05/04/24 08:50 Hemoglobin A1c 5.0 % (<=6.0) 05/04/24 08:50 Calcium 8.9 mg/dL (8.4-10.2) 05/04/24 08:50 Total Bilirubin 0.8 mg/dL (0.2-1.3) 05/04/24 08:50 Conjugated Bilirubin 0.0 mg/dL (0.0-0.3) 05/04/24 08:50 Unconjugated Bilirubin 0.5 mg/dL (0.0-1.1) 05/04/24 08:50 Delta Bilirubin 0.3 mg/dL (0.0-0.2) H 05/04/24 08:50 AST 21 U/L (14-36) 05/04/24 08:50 ALT 17 U/L (4-34) 05/04/24 08:50 Alkaline Phosphatase 49 U/L (38-126) 05/04/24 08:50 Total Protein 7.1 g/dL (6.3-8.2) 05/04/24 08:50 Albumin 4.4 g/dL (3.5-5.0) 05/04/24 08:50 Triglycerides 112.00 mg/dL (0.00-149.00) 05/04/24 08:50 Cholesterol 212.00 mg/dL (0.00-200.00) H 05/04/24 08:50 LDL Cholesterol, Calc 115.8 mg/dL (0.0-131.0) 05/04/24 08:50 VLDL Cholesterol, Calc 22.40 mg/dL (5.00-40.00) 05/04/24 08:50 HDL Cholesterol 73.80 mg/dL (40.00-60.00) H 05/04/24 08:50 Cholesterol/HDL Ratio 2.87 Ratio 05/04/24 08:50 TSH 2.290 mIU/L (0.465-4.680) 05/04/24 08:50 Urine Color Colorless 05/04/24 02:47 Urine Appearance Clear (Clear) 05/04/24 02:47 Urine pH 5.0 (5.0-8.0) 05/04/24 02:47 Ur Specific Otho 1.010 (1.001-1.035) 05/04/24 02:47 Urine Protein Negative (Negative) 05/04/24 02:47 Urine Glucose (UA) Negative (Negative) 05/04/24 02:47 Urine Ketones Negative (Negative) 05/04/24 02:47 Urine Blood Negative (Negative) 05/04/24 02:47 Urine Nitrite Negative (Negative) 05/04/24 02:47 Urine Bilirubin Negative (Negative) 05/04/24 02:47 Urine Urobilinogen <2.0 mg/dL (<2.0) 05/04/24 02:47 Ur Leukocyte Esterase Negative (Negative) 05/04/24 02:47 Urine HCG, Qual Not Detected (Not Detectd) 05/04/24 02:47 Urine Opiates Screen Not Detected (NotDetected) 05/04/24 02:47 Ur Oxycodone Screen Not Detected (NotDetected) 05/04/24 02:47 Urine Methadone Screen Not Detected (NotDetected) 05/04/24 02:47 Ur Barbiturates Screen Not Detected (NotDetected) 05/04/24 02:47 U Tricyclic Antidepress Not Detected (NotDetected) 03 02:47 Ur Phencyclidine Scrn Not Detected (NotDetected) 05/04/24 02:47 Ur Amphetamines Screen Not Detected (NotDetected) 05/04/24 02:47 U Methamphetamines Scrn Not Detected (NotDetected) 05/04/24 02:47 U Benzodiazepines Scrn Not Detected (NotDetected) 05/04/24 02:47 Urine Cocaine Screen Not Detected (NotDetected) 05/04/24 02:47 U Marijuana (THC) Screen Not Detected (NotDetected) 05/04/24 02:47 SARS-CoV-2 (PCR) Not Detected (Not Detectd) 05/04/24 01:07 Vital Signs Temp 97.6 F 05/08/24 09:35 Pulse 89 05/08/24 09:35 Resp 12 05/07/24 20:48 BP 113/82 05/08/24 09:35 Pulse Ox 100 05/08/24 09:35 FiO2 Patient Condition at Discharge: Stable Plan - Discharge Summary Discharge Rx Participant: No New Discharge Prescriptions: New ARIPiprazole [Abilify] 5 mg PO HS 30 Days #30 tab traZODone HCL [Desyrel] 25 mg PO HS PRN 30 Days #30 tab PRN Reason: Insomnia Nicotine 21Mg/24Hr Patch [Habitrol] 1 patch TRANSDERM DAILY 14 Days #14 patch Melatonin 6 mg PO HS PRN tab PRN Reason: Insomnia hydrOXYzine pamoate [Vistaril] 25 mg PO DAILY PRN 30 Days #30 capsule PRN Reason: Anxiety Sertraline [Zoloft] 100 mg PO DAILY 30 Days #30 tab Continue Galcanezumab-Gnlm [Emgality Pen] 120 mg SQ Q30D Meloxicam [Mobic] 7.5 mg PO DAILY norethindrone ac-eth estradioL [Loestrin 21 1-20 Tablet] 1 tab PO DAILY Fluticasone Nasal [place] [Flonase Nasal [place]] 1 spray EA NOSTRIL DAILY SUMAtriptan succinate [Imitrex] 50 mg PO BID PRN PRN Reason: Migraine Headache Albuterol Inhaler [Ventolin Hfa Inhaler] 2 puff INHALATION RT-Q4H PRN PRN Reason: Shortness Of Breath Discontinued Sertraline [Zoloft] 100 mg PO DAILY Cetirizine HCl [Zyrtec] 10 mg PO DAILY Discharge Medication List Albuterol Inhaler [Ventolin Hfa Inhaler] 2 puff INHALATION RT-Q4H PRN 05/04/24 [History] Fluticasone Nasal [place] [Flonase Nasal [place]] 1 spray EA NOSTRIL DAILY 05/04/24 [History] Galcanezumab-Gnlm [Emgality Pen] 120 mg SQ Q30D 05/04/24 [History] Meloxicam [Mobic] 7.5 mg PO DAILY 05/04/24 [History] SUMAtriptan succinate [Imitrex] 50 mg PO BID PRN 05/04/24 [History] norethindrone ac-eth estradioL [Loestrin 21 1-20 Tablet] 1 tab PO DAILY 05/04/24 [History] ARIPiprazole [Abilify] 5 mg PO HS 30 Days #30 tab 05/08/24 [Rx] Melatonin 6 mg PO HS PRN tab 05/08/24 [Rx] Nicotine 21Mg/24Hr Patch [Habitrol] 1 patch TRANSDERM DAILY 14 Days #14 patch 05/08/24 [Rx] Sertraline [Zoloft] 100 mg PO DAILY 30 Days #30 tab 05/08/24 [Rx] hydrOXYzine pamoate [Vistaril] 25 mg PO DAILY PRN 30 Days #30 capsule 05/08/24 [Rx] traZODone HCL [Desyrel] 25 mg PO HS PRN 30 Days #30 tab 05/08/24 [Rx] Follow up Appointment(s)/Referral(s): [facility] Sousa [Outside] - 05/12/24 2:00 pm (05/12 @ 14:00 with Viktor Fernández Please check email for virtual instructions for email) Lila Hernandes MD [Primary Care Provider] - 1-2 days Patient Instructions/Handouts: How to Stop Smoking (DC), Depression (DC), Generalized Anxiety Disorder (GEN), Suicide Prevention (DC) Activity/Diet/Wound Care/Special Instructions: [facility] Discharge Info Avoid the use of street drugs and alcohol. Take all medications as prescribed. When you are in need of refills on your medications, please contact your outpatient medical provider and/or outpatient psychiatrist. Please go to your scheduled outpatient appointments for aftercare treatment. If symptoms return or become worse, call the crisis line at or and/or visit the nearest emergency room for assistance. National Suicide and Crisis Lifeline - call or text 988 Discharge Disposition: HOME SELF-CARE
== END 2024-05-08 13:15 | disposition home or self-care (01) | DRG 885 ==
LOC: EC 23:28 → 3MHU 05-04 02:09
PROVIDERS: ADMIT Psychiatry & Neurology Psychiatry; ATTEND Psychiatry & Neurology Psychiatry
DX: F31.30 Bipolar disorder, current episode depressed, mild or moderate severity, unspecified (principal); R45.851 Suicidal ideations; J45.20 Mild intermittent asthma, uncomplicated; F17.290 Nicotine dependence, other tobacco product, uncomplicated; F41.1 Generalized anxiety disorder; G43.909 Migraine, unspecified, not intractable, without status migrainosus; G47.00 Insomnia, unspecified; Z79.1 Long term (current) use of non-steroidal anti-inflammatories (NSAID); Z79.899 Other long term (current) drug therapy; Z71.6 Tobacco abuse counseling
CPT/HCPCS: 80053; 80061; 80306; 81003; 81025; 82075; 82248; 83036; 84443; 85025; 87635; 99285

== ENCOUNTER → 2024-05-25 | Outpatient (CLI) | payer MEDICAID ==
--- NOTE | 2024-05-25 10:13 | XR ---
EXAMINATION TYPE: XR lumbar spine 2 or 3V DATE OF EXAM: 05/25/2024 10:07 AM COMPARISON: None CLINICAL INDICATION: Female, 29 years old with history of M54.50 LOW BACK PAIN, UNSPECIFIED; PHH, zachariah n TECHNIQUE: XR lumbar spine 2 or 3V - Frontal, lateral and coned in L5-S1 lateral views of the spine. FINDINGS: No evidence of any acute osseous pathology. No evidence of loss of vertebral body height i s seen. There is normal alignment of the lumbar vertebral bodies. No significant degeneration changes throughout the spine. IMPRESSION: 1. No evidence of fracture. 2. No evidence for significant spinal canal neural foraminal stenosis. [facility], , 05/25/2024 10:11 AM
== END | disposition home or self-care (01) ==
LOC: RADXRMAIN 09:51
DX: M54.50 Low back pain, unspecified (principal)
CPT/HCPCS: 72100

== ENCOUNTER 2024-06-16 16:08 | Emergency (ER) | payer MEDICAID ==
[2024-06-16 16:14] VITALS: PULSE 80; RESP 16
--- NOTE | 2024-06-16 16:37 | ED ---
General Adult HPI - General Chief complaint: Wound/Laceration Stated complaint: L hand laceration Time Seen by Provider: 06/16/24 16:23 Source: patient, EMS, RN notes reviewed Mode of arrival: EMS Limitations: no limitations - History of Present Illness Initial comments: 29-year-old female presents to the emergency department for evaluation of left 2nd and 3rd finger laceration. Patient states that she was using hedge trimmers when she accidentally cut her fingers. She states that this prompted her to call EMS. She has not attempted to move her fingers. She is unsure when she last had a tetanus vaccine. - Related Data Home Medications Medication Instructions Recorded Confirmed Albuterol Inhaler [Ventolin Hfa 2 puff INHALATION RT-Q4H PRN 05/04/24 05/04/24 Inhaler] Fluticasone Nasal [place] [Flonase 1 spray EA NOSTRIL DAILY 05/04/24 05/04/24 Nasal [place]] Galcanezumab-Gnlm [Emgality Pen] 120 mg SQ Q30D 05/04/24 05/04/24 Meloxicam [Mobic] 7.5 mg PO DAILY 05/04/24 05/04/24 SUMAtriptan succinate [Imitrex] 50 mg PO BID PRN 05/04/24 05/04/24 norethindrone ac-eth estradioL 1 tab PO DAILY 05/04/24 05/04/24 [Loestrin 21 1-20 Tablet] Previous Rx's Medication Instructions Recorded ARIPiprazole [Abilify] 5 mg PO HS 30 Days #30 tab 05/08/24 Melatonin 6 mg PO HS PRN tab 05/08/24 Nicotine 21Mg/24Hr Patch [Habitrol] 1 patch TRANSDERM DAILY 14 Days 05/08/24 #14 patch Sertraline [Zoloft] 100 mg PO DAILY 30 Days #30 tab 05/08/24 hydrOXYzine pamoate [Vistaril] 25 mg PO DAILY PRN 30 Days #30 05/08/24 capsule traZODone HCL [Desyrel] 25 mg PO HS PRN 30 Days #30 tab 05/08/24 Cephalexin [Keflex] 500 mg PO Q6HR #28 cap 06/16/24 Allergies Allergy/AdvReac Type Severity Reaction Status Date / Time No Known Allergies Allergy Verified 05/04/24 10:23 Review of Systems ROS Statement: Those systems with pertinent positive or pertinent negative responses have been documented in the HPI. ROS Other: All systems not noted in ROS Statement are negative. Past Medical History Past Medical History: No Reported History History of Any Multi-Drug Resistant Organisms: None Reported Past Surgical History: No Surgical Hx Reported Past Psychological History: Anxiety, Depression Smoking Status: Vaper Past Alcohol Use History: Rare Past Drug Use History: None Reported General Exam Limitations: no limitations General appearance: alert, in no apparent distress Head exam: Present: atraumatic, normocephalic, normal inspection Eye exam: Present: normal appearance, PERRL, EOMI. Absent: scleral icterus, conjunctival injection, periorbital swelling ENT exam: Present: normal exam, mucous membranes moist Respiratory exam: Present: normal lung sounds bilaterally. Absent: respiratory distress, wheezes, rales, rhonchi, stridor Cardiovascular Exam: Present: regular rate, normal rhythm, normal heart sounds. Absent: systolic murmur, diastolic murmur, rubs, gallop, clicks Extremities exam: Present: full ROM, normal capillary refill, other (Centimeter laceration to the palmar aspect of the left third digit just distal to the distal phalanx, skin avulsion to the distal second digit, normal capillary refill) Back exam: Present: normal inspection Neurological exam: Present: alert, oriented X3 Psychiatric exam: Present: normal affect, normal mood Skin exam: Present: warm, dry, normal color. Absent: intact, rash Course Vital Signs 06/16/24 16:11 Temperature 98.9 F Pulse Rate 80 Respiratory 16 Rate Blood Pressure 116/78 Procedures - Laceration Laceration #1 Consent Obtained: verbal consent Indication: laceration Site: hand Size (cm): 2 Description: linear Anesthetic Used: lidocaine 1% Anesthesia Technique: nerve block Amount (mls): 5 Pre-repair: wound explored, irrigated extensively Type of Sutures: other Size of Sutures: 4-0 Number of Sutures: 7 Technique: simple, interrupted Patient Tolerated Procedure: well, no complications Medical Decision Making - Medical Decision Making Was pt. sent in by a medical professional or institution (, PA, [employer], urgent care, hospital, or [facility]...) When possible be specific @ -No Did you speak to anyone other than the patient for history (EMS, parent, family, police, friend...)? What history was obtained from this source @ -No Did you review nursing and triage notes (agree or disagree)? Why? @ -I reviewed and agree with nursing and triage notes Were old charts reviewed (outside hosp., previous admission, EMS record, old EKG, old radiological studies, urgent care reports/EKG's, [facility] records)? Report findings @ -No old charts were reviewed Differential Diagnosis (chest pain, altered mental status, abdominal pain women, abdominal pain men, vaginal bleeding, weakness, fever, dyspnea, syncope, headache, dizziness, GI bleed, back pain, seizure, CVA, palpatations, mental health, musculoskeletal)? @ -Differential Musculoskeletal Muscular strain, contusion, ligament sprain, fracture, arthritis, septic arthritis, bursitis, cellulitis, muscle spasm, nerve compression, DVT, arterial occlusion, herpes zoster, electrolyte abnormality, tumor.... This is not meant to be in all inclusive list EKG interpreted by me (3pts min.). @ -None X-rays interpreted by me (1pt min.). @ -X-ray left hand reveals no evidence of acute fracture, soft tissue injury visible CT interpreted by me (1pt min.). @ -None done U/S interpreted by me (1pt. min.). @ -None done What testing was considered but not performed or refused? (CT, X-rays, U/S, labs)? Why? @ -None What meds were considered but not given or refused? Why? @ -None Did you discuss the management of the patient with other professionals (professionals i.e. , PA, [employer], lab, RT, psych nurse, social contact worker, natural resources technician, teacher, second officer, family service caseworker)? Give summary @ -No Was smoking cessation discussed for >3mins.? @ -No Was critical care preformed (if so, how long)? @ -No Were there social determinants of health that impacted care today? How? (Homelessness, low income, unemployed, alcoholism, drug addiction, transportation, low edu. Level, literacy, decrease access to med. care, senior living, rehab)? @ -No Was there de-escalation of care discussed even if they declined (Discuss DNR or withdrawal of care, Hospice)? DNR status @ -No What co-morbidities impacted this encounter? (DM, HTN, Smoking, COPD, CAD, Cancer, CVA, ARF, Chemo, Hep., AIDS, mental health diagnosis, sleep apnea, morbid obesity)? @ -None Was patient admitted / discharged? Hospital course, mention meds given and route, prescriptions, significant lab abnormalities, going to OR and other pertinent info. @ -Discharge. Patient presented emergency department for evaluation of finger laceration from hedge trimmers. Patient was updated on tetanus vaccine. Patient was provided medication for pain control and antibiotics for prophylactic coverage. X-rays obtained which revealed no evidence of acute fracture. The wound was cleaned and repaired. She was instructed on wound care and suture removal time. She is understanding agreeable discharge plan. Patient stable at time of discharge. Case discussed with Dr. Jeffers Undiagnosed new problem with uncertain prognosis? @ -No Drug Therapy requiring intensive monitoring for toxicity (Heparin, Nitro, Insulin, Cardizem)? @ -No Were any procedures done? @ -Suture Diagnosis/symptom? @ -Laceration Acute, or Chronic, or Acute on Chronic? @ -Acute Uncomplicated (without systemic symptoms) or Complicated (systemic symptoms)? @ -Uncomplicated Side effects of treatment? @ -No Exacerbation, Progression, or Severe Exacerbation? @ -No Poses a threat to life or bodily function? How? (Chest pain, [place], [place], pneumonia, PE, COPD, DKA, ARF, appy, cholecystitis, CVA, Diverticulitis, Homicidal, Suicidal, threat to staff... and all critical care pts) @ -No Disposition Clinical Impression: Laceration Disposition: HOME SELF-CARE Condition: Stable Instructions (If sedation given, give patient instructions): Care For Your Stitches (ED) Additional Instructions: Please keep wound clean and dry. Have sutures removed in 7 to 10 days. Follow- up with your primary care provider. Return to the emergency department for new or worsening symptoms. Prescriptions: Cephalexin [Keflex] 500 mg PO Q6HR #28 cap Is patient prescribed a controlled substance at d/c from ED?: No Referrals: Pedro Vigil MD [Primary Care Provider] - 1-2 days Joseluis Domingo MD [STAFF PHYSICIAN] - 1-2 days
[2024-06-16] MEDS: HYDROmorphone 0.5 MG/0.5 ML SYRINGE IVP STA (16:41)
[2024-06-16] MEDS: LIDOCAINE 1% INJ 10MG/ML (20 ML MDV) SQ ONE (16:41)
[2024-06-16] MEDS: DIPH,PERTUS(ACELL)TETVAC-LF 0.5 ML VIAL IM ONE (16:41)
--- NOTE | 2024-06-16 17:15 | XR ---
EXAMINATION TYPE: XR hand complete LT DATE OF EXAM: 06/16/2024 5:08 PM INDICATION: Patient age:Female; 29 years old; Reason for study: meat trimmer laceration 2nd and 3rd digit; PHH. pain COMPARISON: None TECHNIQUE: Frontal, lateral and oblique views of the left hand were obtained. FINDINGS: Normal alignment of the visualized joints. No acute osseous pathology is identified. No e vidence of soft tissue swelling. Soft tissue defect involving the ulnar aspect of the distal third di git at the DIP joint. No radiopaque foreign body. IMPRESSION: 1. No acute osseous pathology. No radiopaque foreign body. 2. Soft tissue laceration of the distal third digit. [facility], , 06/16/2024 5:12 PM
[2024-06-16 17:57] VITALS: BP 120/82; TEMP 98.4
== END 2024-06-16 17:59 | disposition home or self-care (01) ==
LOC: EC 16:08
DX: S61.211A Laceration without foreign body of left index finger without damage to nail, initial encounter (principal); S61.213A Laceration without foreign body of left middle finger without damage to nail, initial encounter; F17.290 Nicotine dependence, other tobacco product, uncomplicated; Z23 Encounter for immunization; W26.9XXA Contact with unspecified sharp object(s), initial encounter
CPT/HCPCS: 73130; 90715; 99283; 12001; 96365; 96375; 90471; J0690; J2003; J1171

== ENCOUNTER → 2024-09-25 | Outpatient (CLI) | payer MEDICAID ==
--- NOTE | 2024-09-25 20:29 | MR ---
EXAMINATION TYPE: MR brain wo/w con DATE OF EXAM: 09/25/2024 8:12 PM COMPARISON: None. CLINICAL INDICATION: Female, 29 years old with history of G62.9 POLYNEUROPATHY, UNSPECIFIED, family h istory of MS, neuropathy on hands and feet, dizzy, migraines, tremor in hands TECHNIQUE: Multiplanar, multiecho imaging on a 3.0 Maddie magnet is performed through the brain. Stud y is performed within 24 hours of arrival to the hospital.Multiplanar, multiecho imaging on a 3.0 Honey la magnet is performed through the knee. IV Contrast: 6.5 mL Gadobutrol (None, if empty) FINDINGS: The craniovertebral junction is normal. The pituitary is normal for patient age and sex. Diffusion-weighted imaging is performed. No abnormal hyperintensity is present to suggest an acute i ntracranial infarct or acute ischemic change. Signal within the brain appears normal. No suspicious T2 or inversion recovery hyperintensities are e vident. Ventricles and sulci are appropriate for the patient age. No suspicious enhancement is evident. IMPRESSION: 1. No suspicious acute changes Pre- or Postcontrast MRI brain [facility], Workstation: [facility], 09/25/2024 8:27 PM
== END | disposition home or self-care (01) ==
LOC: RADMRIMAIN 19:26
DX: G62.9 Polyneuropathy, unspecified (principal)
CPT/HCPCS: 70553; A9585